=== PATIENT | female | born 1975 | race Caucasian/White ===

== ENCOUNTER 2018-09-15 08:48 | Emergency (ER) | payer OTHER ==
[~2018-09-15] VITALS: Ht 170.2 cm; Wt 98.9 kg
[~2018-09-15 08:48] MED LIST: LEVSIN/SL0.125 MG SL; OMEPRAZOLE40 MG PO; ZANTAC150 MG PO; ZIAC 5-6.25 MG1 TAB
== END 2018-09-15 14:39 | disposition home or self-care (01) ==
LOC: ER 08:48
DX: N83.292 Other ovarian cyst, left side (principal); K76.0 Fatty (change of) liver, not elsewhere classified; R10.32 Left lower quadrant pain

== ENCOUNTER 2022-09-01 05:30 | Emergency (ER) | payer OTHER ==
[~2022-09-01] VITALS: Ht 170.2 cm; Wt 88.9 kg
[2022-09-01] MEDS ORDERED: SYNTHROID50 MCG (05:38)
== END 2022-09-01 10:25 | disposition home or self-care (01) ==
LOC: ER 05:30
DX: N39.0 Urinary tract infection, site not specified (principal); K43.9 Ventral hernia without obstruction or gangrene; Z88.8 Allergy status to other drugs, medicaments and biological substances